=== PATIENT | male | born 1985 | race Caucasian/White ===

== ENCOUNTER 2021-08-08 19:05 | Emergency (ER) | payer OTHER ==
[~2021-08-08] VITALS: Ht 177.8 cm; Wt 124.3 kg
[2021-08-08 19:57] VITALS: BP 141/98
--- NOTE | 2021-08-08 20:30 | NUR ---
PT AMB TO BED 3
--- NOTE | 2021-08-08 21:23 | NUR ---
PT SITTING IN CHAIR ON ROOM AIR. C/O OF ITCHY RASH OF NECK AND CHEST AND ARMS. PT HAS NO MEDICAL HX EXCEPT FOR RECENT TREATMENT OF PNA . PT COMPLETED ROUND OF ABT WITH NO ADVERSE REACTION. PT STATES THE RASH STARTED YESTERDAY.
[2021-08-08] MEDS ORDERED: PRED20TA5 PO (22:23)
--- NOTE | 2021-08-08 22:23 | NUR ---
WAS AT BEDSIDE EVALUATING PT.
[2021-08-08 22:45] VITALS: BP 128/89
--- NOTE | 2021-08-08 22:45 | NUR ---
Patient discharged with v/s stable. Written and verbal after care instructions given and explained. Patient verbalized understanding. Ambulatory with steady gait. All questions addressed prior to discharge. Advised to follow up with PMD.
== END 2021-08-08 22:45 | disposition home or self-care (01) ==
LOC: MED 19:05
DX: R21 Rash and other nonspecific skin eruption (principal); F17.210 Nicotine dependence, cigarettes, uncomplicated
CPT/HCPCS: 99282

== ENCOUNTER 2021-08-17 21:35 | Emergency (ER) | payer OTHER ==
[~2021-08-17] VITALS: Ht 177.8 cm; Wt 122.5 kg
[~2021-08-17 21:35] MED LIST: PRED20TA5 PO
[2021-08-17 21:52] VITALS: BP 114/68
--- NOTE | 2021-08-18 00:16 | NUR ---
pt called on cell phone, answered and hung up.
--- NOTE | 2021-08-18 00:16 | NUR ---
pt called in tent, no answer.
== END 2021-08-18 00:15 | disposition left against medical advice (07) ==
LOC: MED 21:35
DX: R50.9 Fever, unspecified (principal); Z53.21 Procedure and treatment not carried out due to patient leaving prior to being seen by health care provider
CPT/HCPCS: 71045

== ENCOUNTER 2022-04-14 15:31 | Emergency (ER) | payer OTHER ==
[~2022-04-14] VITALS: Ht 177.8 cm; Wt 106.6 kg
[2022-04-14 16:04] VITALS: BP 114/69
--- NOTE | 2022-04-14 16:15 | NUR ---
C/O VALENTINO EARS PAIN , SORE THROAT X 5 DAYS. PT TOOK AMOXICILLIN X 6 DAYS AND TOOK CIPRO X 2 DAYS .
[2022-04-14] MEDS ORDERED: cefTRIAXone 1,000 MG in LIDOCAINE MPF 1% 2.1 ML IM ONE (16:55)
[2022-04-14] MEDS ORDERED: HYDROcodone/APAP 5/325 MG 1 TAB TAB PO ONE (16:55)
[2022-04-14] MEDS ORDERED: ACET-8386 PO (16:59)
[2022-04-14] MEDS ORDERED: NAPR-54 PO (16:59)
[2022-04-14] MEDS ORDERED: AMOX-1230 PO (16:59)
[2022-04-14] MEDS ORDERED: CIPR7.5S OT (16:59)
[2022-04-14] MEDS ORDERED: cefTRIAXone 1,000 MG VIAL ONE (17:00)
[2022-04-14] MEDS ORDERED: LIDOCAINE MPF 1% 5 ML ONE (17:01)
[2022-04-14 17:27] VITALS: BP 132/76
--- NOTE | 2022-04-14 17:27 | NUR ---
Patient discharged with v/s stable. Written and verbal after care instructions given and explained. Patient alert, oriented and verbalized understanding of instructions. Ambulatory with steady gait. All questions addressed prior to discharge. ID band removed. Patient advised to follow up with PMD. Rx of NORCO, AMOX CLAVCIPRODEX OTIC SUSPENSION & NAORXEN given. Patient educated on indication of medication including possible reaction and side effects. Opportunity to ask questions provided and answered.
== END 2022-04-14 17:27 | disposition home or self-care (01) ==
LOC: MED 15:31
DX: H60.92 Unspecified otitis externa, left ear (principal); Z79.899 Other long term (current) drug therapy; Z90.49 Acquired absence of other specified parts of digestive tract; Z88.8 Allergy status to other drugs, medicaments and biological substances
CPT/HCPCS: 96372; 99283; J0696; J2001

== ENCOUNTER 2022-11-23 21:59 | Emergency (ER) | payer OTHER ==
[~2022-11-23] VITALS: Ht 177.8 cm; Wt 108.9 kg
[~2022-11-23 21:59] MED LIST changes: +ACET-8905 PO; +AMOX-1230 PO; +CIPR7.5S OT; +NAPR-54 PO
[2022-11-23 22:05] VITALS: BP 124/96
--- NOTE | 2022-11-23 23:07 | NUR ---
Dr. Díaz examining patient.
[2022-11-23] MEDS ORDERED: MORPHINE SULFATE 4 MG/ML SYR IVP ONE (23:20)
[2022-11-23] MEDS ORDERED: ONDANSETRON 4 MG/2 ML VIAL IVP ONE (23:20)
[2022-11-23] MEDS ORDERED: NACL 0.9% 1,000 ML IV ONE (23:20)
[2022-11-23 23:33] LABS: BASOPHILS % (AUTO) 0.4 % (0.0-2.0); EOSINOPHILS # (AUTO) 0.2 K/uL (0-0.4); EOSINOPHILS % (AUTO) 2.1 % (0.0-4.0); HEMATOCRIT 42.1 % (36-52); HEMOGLOBIN 14.5 g/dL (12.0-18.0); LYMPHOCYTES # (AUTO) 3.4 K/uL (2.0-11.5); LYMPHOCYTES % (AUTO) 32.9 % (20.5-51.1); MEAN CORPUSCULAR HEMOGLOBIN 31 pg (27-31); MEAN CORPUSCULAR HGB CONC 35 g/dL (33-37); MEAN CORPUSCULAR VOLUME 88.2 fL (80-94); MONOCYTES % (AUTO) 9.8 % (1.7-9.3); NEUTROPHILS # (AUTO) 5.7 K/uL (1.8-7.7); NEUTROPHILS % (AUTO) 54.8 % (42.2-75.2); PLATELET COUNT (AUTO) 220 K/uL (140-450); RED BLOOD CELL COUNT(AUTO) 4.77 MIL/uL (4.20-6.10); RED CELL DISTRIBUTION WIDTH 12.3 % (11.6-13.7); WHITE BLOOD COUNT (AUTO) 10.3 K/uL (4.8-10.8)
[2022-11-24] MEDS ORDERED: IBUPROFEN 800 MG TAB PO ONE (00:10)
[2022-11-24 00:30] LABS: ALBUMIN 4.5 g/dL (3.4-5.0); ANION GAP 11.6 (8-16); ASPARTATE AMINOTRANSFERASE 21 U/L (15-37); CARBON DIOXIDE 29.2 mmol/L (21-32); CHLORIDE 101 mmol/L (98-107); CREATININE 0.9 mg/dL (0.6-1.3); GFR ARICAN-AMERICAN 122 mL/min (>90); GLUCOSE 109 mg/dL (74-106); POTASSIUM 3.8 mmol/L (3.5-5.1); SODIUM SERUM 138 mmol/L (136-145); TOTAL BILIRUBIN 0.4 mg/dL (0.0-1.0); UREA NITROGEN, BLOOD 15 mg/dL (7-18)
--- NOTE | 2022-11-24 01:29 | NUR ---
Patient taken to bed 2.
--- NOTE | 2022-11-24 01:45 | NUR ---
received pt in bed 2 with c/oepigasric pain radiating to his back, toes, fingers were cold, chest pain for 5 days,fever for 2 days, left ear , chills
[2022-11-24] MEDS ORDERED: ONDANSETRON 4 MG/2 ML VIAL ONE (01:59)
[2022-11-24] MEDS ORDERED: MORPHINE SULFATE 4 MG/ML SYR ONE (01:59)
--- NOTE | 2022-11-24 02:15 | NUR ---
TO CT VIA W/C
--- NOTE | 2022-11-24 02:30 | NUR ---
RETURNED FROM CT
[2022-11-24] MEDS ORDERED: AMOX1TAB8 PO (04:54)
[2022-11-24] MEDS ORDERED: IBUP-2213 PO (04:54)
[2022-11-24] MEDS ORDERED: ACET-9527 PO (04:55)
[2022-11-24] MEDS ORDERED: OFLO5SOL27 LEFT EAR (04:58)
[2022-11-24 05:14] VITALS: BP 118/75
--- NOTE | 2022-11-24 05:14 | NUR ---
Patient discharged with v/s stable. Written and verbal after care instructions given and explained. Patient alert, oriented and verbalized understanding of instructions. Ambulatory with steady gait. All questions addressed prior to discharge. ID band removed. Patient advised to follow up with PMD. Rx of Amox-clav, [place] , Ibuprofen and Ofloxacin given. Patient educated on indication of medication including possible reaction and side effects. Opportunity to ask questions provided and answered.
== END 2022-11-24 05:14 | disposition home or self-care (01) ==
LOC: MED 21:59
DX: H60.92 Unspecified otitis externa, left ear (principal); R07.9 Chest pain, unspecified; Z79.2 Long term (current) use of antibiotics; Z79.891 Long term (current) use of opiate analgesic; Z79.899 Other long term (current) drug therapy; Z79.1 Long term (current) use of non-steroidal anti-inflammatories (NSAID); Z88.8 Allergy status to other drugs, medicaments and biological substances
CPT/HCPCS: 36415; 70481; 80053; 84484; 85025; 85379; 96361; 96374; 96375; 99285; J2270; J2405; J7030; Q9967